=== PATIENT | male | born 1980 | race African-American/Black ===

== ENCOUNTER 2017-01-27 01:32 | Emergency (ER) | payer SELFPAY ==
[~2017-01-27] VITALS: Ht 172.7 cm; Wt 99.8 kg
--- NOTE | 2017-01-27 01:47 | NUR ---
PT TO ER [facility] AND [employer] FROM [place] FOR ALTERED MENTAL STATUS. NO IMMEDIATE SIGNS OF DISTRESS NOTED. PT VITAL SIGNS STABLE. PT TO ER BED AND CONNECTED TO MONITOR. PER EMS PT GIVEN VERSED 5MG IM BIOCHEMISTRY TECHNICIAN. PT MILDY SEDATED UPON ARRIVAL HOWEVER CONTINUES TO TO CURSE AT STAFF. WILL CONT TO MONITOR PT.
[2017-01-27 02:13] LABS: HEMATOCRIT 43 % (39-51); HEMOGLOBIN 13.9 g/dL (13.5-17.5); MEAN CORPUSCULAR HEMOGLOBIN 26 PG (26.0-33.0); MEAN CORPUSCULAR HGB CONC 32 g/dl (31.0-36.0); MEAN CORPUSCULAR VOLUME 79 fL (80-96); PLATELET COUNT (AUTO) 251 /CMM (150-450); RDW COEFFICIENT OF VARIATION 15.9 (11.5-15.0); RED BLOOD CELL COUNT(AUTO) 5.45 MIL/uL (4.5-6.0); WHITE BLOOD COUNT (AUTO) 8.7 K/uL (4.3-11.0)
[2017-01-27 02:29] LABS: CALCIUM, SERUM 8.8 mg/dL (8.5-10.1); CREATININE 1.2 mg/dL (0.6-1.3); POTASSIUM 3.6 mmol/L (3.5-5.1)
[2017-01-27 02:36] LABS: ALBUMIN 4.4 g/dL (3.4-5.0); BILIRUBIN,DIRECT 0.1 mg/dL (0.0-0.2); BILIRUBIN,TOTAL 0.4 mg/dL (0.2-1.0); SALICYLATE 7.9 mg/dL (2.8-20.0); TOTAL PROTEIN, SERUM 7.6 g/dL (6.4-8.2)
--- NOTE | 2017-01-27 04:15 | NUR ---
PT SLEEPING IN [place]. NO SIGNS OF DISTRESS NOTED. PT VITAL SIGNS STABLE. BREATHS EQUAL AND UNLABORED. WILL CONT TO MONITOR PT.
[2017-01-27 07:31] VITALS: BP 131/63
== END 2017-01-27 01:59 | disposition home or self-care (01) ==
LOC: ER 01:41
DX: F10.129 Alcohol abuse with intoxication, unspecified (principal)
CPT/HCPCS: 36415; 80048-TC; 80076-TC; 85025-TC; A4606; A6402; G0480; Z7610